=== PATIENT | female | born 1970 | race Caucasian/White ===

== ENCOUNTER 2018-07-08 11:18 | Outpatient (CLI) | payer BC | END 2018-07-08 11:19 | disposition home or self-care (01) | LOC: BICMAMMO 11:18 | PROVIDERS: ATTEND Obstetrics & Gynecology | DX: Z12.31 Encounter for screening mammogram for malignant neoplasm of breast (principal); Z80.3 Family history of malignant neoplasm of breast | CPT/HCPCS: 77063; 77067 ==

== ENCOUNTER 2025-09-10 11:16 | Outpatient (CLI) | payer BC | END 2025-09-10 11:17 | disposition home or self-care (01) | LOC: SCSRAD 11:16 | PROVIDERS: ATTEND Obstetrics & Gynecology Female Pelvic Medicine and Reconstructive Surgery | DX: Z01.818 Encounter for other preprocedural examination (principal); Z13.1 Encounter for screening for diabetes mellitus; N81.4 Uterovaginal prolapse, unspecified; N39.3 Stress incontinence (female) (male) | CPT/HCPCS: 71046 ==